=== PATIENT | male | born 1960 | race Caucasian/White ===

== ENCOUNTER 2016-10-28 18:01 | Emergency (ER) | payer OTHER ==
[~2016-10-28 18:01] MED LIST: ALKA SELTZER COLD PO; ASAB PO; ATV.5 PO; AUG875 PO; BACTRONASA NAS; CELEXA20 PO; CULTURELLE OTC PO; FLEX PO; LEVAQUIN750 MG PO; LISINOPRIL PO; NEUR300 PO; NORCO1 TA1 PO; NORCO1 TA2 PO; PAXIL40 MG PO; PENICILLN VK500 MG PO; PRILO PO; PRIN10 PO; PRIN20 PO; PROTONIX PO; SUCR PO; VOLT75 PO; ZESTRIL20 MG PO
[2016-10-28 18:39] LABS: BASOPHILS 0.4 %; BASOPHILS ABSOLUTE 0.04 10/3/uL (0.0-0.16); EOSINOPHILS 1.7 %; EOSINOPHILS ABSOLUTE 0.18 10/3/uL (0.0-0.53); HEMOGLOBIN 11.3 g/dL (13.6-17.8); IMMATURE GRANULOCYTES 0.4 %; IMMATURE GRANULOCYTES ABSOLUTE 0.04 10/3/uL (0.0-0.11); LYMPHOCYTES 14.7 %; LYMPHOCYTES ABSOLUTE 1.59 10/3/uL (0.67-4.30); MEAN CORPUS HGB CONC 32.5 g/dL (32.0-36.0); MEAN PLATELET VOLUME 10.1 fL (9.2-13.0); MONOCYTES 9.3 %; NEUTROPHILS 73.5 %; NEUTROPHILS ABSOLUTE 7.93 10/3/uL (2.02-8.40); RBC DISTRIBUTION WIDTH 13.7 % (12.0-16.0); WHITE BLOOD CELLS 10.8 10/3/uL (4.5-10.5)
[2016-10-28 18:40] LABS: HEMATOCRIT 34.8 % (40.0-51.0); MANUAL DIFF NO %; MEAN CORPUSCULAR HEMOGLOB 25.7 pg (26.0-34.0); MEAN CORPUSCULAR VOLUME 79.1 fL (80-100); PLATELET COUNT 333 10/3/uL (150-400)
[2016-10-28 18:59] LABS: CALCIUM, SERUM 8.5 MG/DL (8.5-10.4); CHEST PAIN PROFILE TAT 0 Hrs 26 Mins; CHLORIDE, SERUM 104 MMOL/L (96-112); CO2 (CARBON DIOXIDE) 25 MMOL/L (24-34); CREATININE 1.47 MG/DL (0.70-1.30); GFR AFRICAN AMERICAN 62 ML/MIN (>=60); GFR NON AFRICAN AMERICAN 53 ML/MIN (>=60); SODIUM, SERUM 137 MMOL/L (135-148); TROPONIN I <0.02 NG/ML (<0.05)
[2016-10-28 19:01] LABS: ACETAMINOPHEN LEVEL (TYLENOL) < 2.0 MCG/ML (10.0-20.0); ALCOHOL < 10 MG/DL (0); BUN (BLOOD UREA NITROGEN) 23 MG/DL (6-23); GLUCOSE, SERUM 118 MG/DL (60-99); POTASSIUM, SERUM 4.6 MMOL/L (3.5-5.3); SALICYLATE < 1.7 MG/DL (-)
[2016-10-28 20:43] LABS: ASCORBIC ACID (UR NOT ORDER) NEG (NEG); BILIRUBIN, URINE NEGATIVE (NEG); ER URINALYSIS TAT 0 Hrs 09 Mins; KETONE, URINE NEGATIVE (NEG); LEUKOCYTE ESTERASE(NOT OR NEG (NEG); NITRITE (URINE) NEG (NEG); WBC (NOT ORDERED) (RFLEX) < 1 (0-5)
[2016-10-28 21:38] LABS: INTERNATIONAL NORMAL RATI 1.1 UNITS (-); PROTIME (NOT ORD) 13.6 SEC (12.0-14.5)
[2016-10-28 21:39] LABS: PARTIAL THROMBO TIME 25.7 SEC (22.5-37.2)
[2016-10-28 21:48] LABS: AMPHETAMINES (NOT ORD) NEG (NEG); BARBITURATES (NOT ORDERED NEG (NEG); BENZODIAZEPINES (NOT ORD) NEG (NEG); CANNABINOIDS (THC) NEG (NEG); COCAINE (NOT ORDERED) NEG (NEG); OPIATES NEG (NEG); PHENCYCLIDINE(PCP) NEG (NEG); TRICYCLICS POS (NEG)
== END 2016-10-29 00:15 | disposition home or self-care (01) ==
LOC: ER 18:01
PROVIDERS: Emergency Medicine
DX: R55 Syncope and collapse (principal); N18.9 Chronic kidney disease, unspecified; F10.10 Alcohol abuse, uncomplicated; I12.9 Hypertensive chronic kidney disease with stage 1 through stage 4 chronic kidney disease, or unspecified chronic kidney disease; K21.9 Gastro-esophageal reflux disease without esophagitis; Z88.2 Allergy status to sulfonamides; Z79.899 Other long term (current) drug therapy; W18.2XXA Fall in (into) shower or empty bathtub, initial encounter
CPT/HCPCS: 70450; 80048; 80305; 80307; 81001; 83735; 84484; 85025; 85610; 85730; 93005; 96374; 96375; 99285; J1200; J2800

== ENCOUNTER 2016-11-05 11:12 | Day surgery (SDC) | payer OTHER ==
[2016-10-30 13:25] LABS: HEMATOCRIT 37.2 % (40.0-51.0); HEMOGLOBIN 11.3 g/dL (13.6-17.8)
[2016-10-30 13:33] LABS: CALCIUM, SERUM 8.9 MG/DL (8.5-10.4); CHLORIDE, SERUM 107 MMOL/L (96-112); CO2 (CARBON DIOXIDE) 28 MMOL/L (24-34); CREATININE 1.32 MG/DL (0.70-1.30); GFR AFRICAN AMERICAN 70 ML/MIN (>=60); GFR NON AFRICAN AMERICAN 61 ML/MIN (>=60); GLUCOSE, SERUM 130 MG/DL (60-99); SODIUM, SERUM 142 MMOL/L (135-148)
[2016-10-30 13:34] LABS: BUN (BLOOD UREA NITROGEN) 13 MG/DL (6-23)
--- NOTE | ~2016-11-05 | OP ---
Record Of Operation [facility] [address] [place]. [address] NAME: LINH SINGLETON : 64 STATUS : REG [facility] PAT#: [id number] AGE: 56 ADM/REG DATE : 11/05/16 MR#: [id number] REPORT SERV DATE: 11/05/16 DICTATED BY: CHAD HANSEN DATE: 11/05/16 REPORT STATUS : Draft TRANSCRIBED BY: MODL DATE: 11/05/16 DATE OF PROCEDURE: 11/05/2016 PREOPERATIVE DIAGNOSIS: Right shoulder large rotator cuff tear (infra and supraspinatus tendon) from injury 1 year ago with retraction and muscle atrophy. POSTOPERATIVE DIAGNOSIS: Right shoulder large rotator cuff tear (infra and supraspinatus tendon) from injury 1 year ago with retraction and muscle atrophy. PROCEDURE: Repair of above rotator cuff via margin convergence on the medial side and SwiveLock suture anchor and suture tape for the lateralmost portion of the tear. ANESTHESIA: General with interscalene block and pain pump catheter. PHYSICIAN: Chad Hansen M.D. NEEDLE LOOM OPERATOR HELPER: Jarred. ANESTHESIA: General with regional block. ESTIMATED BLOOD LOSS: 20 mL. IV FLUIDS: Six hundred crystalloid. COMPLICATIONS: None. DISPOSITION: The patient tolerated the procedure well and was brought to the recovery room in stable condition. PROCEDURE NOTE: After interscalene block and pain pump catheter was administered by the Anesthesia Department in the preop holding area, the patient was brought to the operating room and placed in a supine position. After general anesthesia was administered, the patient was put in the right lateral decubitus position taking care to pad and protect vulnerable areas. The right arm was put in the arthroscopy setup system with 5 pounds of traction elevating the arm approximately 30 degrees later on towards the end of the repair of the rotator cuff. This was increased to 10 pounds. Afterwards, the right shoulder and proximal humerus were prepped and draped in the usual sterile manner. A surgical timeout was performed and all were in agreement and afterwards, our attention was then directed to the posterior portal access into the glenohumeral joint. The posterior portal was made in the standard fashion to gain access into the glenohumeral joint. This revealed diffuse fraying of the labrum and some arthritic changes of the glenoid and humeral head. An anterior portal site was made via the inside-out technique and a shaver was then used to shave the free fibers in this area. The repair of the labrum was not necessary and no other treatment was deemed necessary for these 2 structures at this time. The arthroscope was then placed to the subacromial space and an additional lateral Record Of Operation [facility] [id number] [place]. [address] NAME: LINH SINGLETON : 64 STATUS : REG [facility]#: [id number] AGE: 56 ADM/REG DATE : 11/05/16 MR#: [id number] REPORT SERV DATE: 11/05/16 DICTATED BY: CHAD HANSEN DATE: 11/05/16 REPORT STATUS : Draft TRANSCRIBED BY: HODA DATE: 11/05/16 portal site was made at the "50 yard noni." The shaver was used to debride the edges of the very large rotator cuff tear which included the entire supraspinatus and a good portion of the infraspinatus tendon. Afterwards, a total of 5 separate fiber wires were placed in the edges of the rotator cuff and these were then tied thus bringing the edges together medially. The last 2 lateral sutures comprised of a FiberTape and a suture tape and these were retied and then put into the SwiveLock suture anchor. The SwiveLock suture anchor was placed into the edge of the greater tuberosity near its edge as it meets the lateral border of the humerus. Prior to this placement, the greater tuberosity was debrided sharply of Sharpey fibers back to some punctate bleeding of the bone to promote bone to tendon healing on the greater tuberosity. Placement of the suture anchor was done by 1st making a lion tamer hole at the desired position, gathering all the sutures and putting it through the eyelid of the SwiveLock suture anchor. The SwiveLock suture anchor was then placed into the hole. The sutures were tightly pulled and the SwiveLock suture anchor was screwed into the bone, thus bringing the rotator cuff back to its near anatomic position. Excellent reduction and repair was able to be achieved through this method. All sutures were cut just lateral to the knots that were placed and the shoulder was put through slight internal and external rotation and no further abnormalities were appreciated. A subacromial decompression was deemed not necessary and at this point, arthroscopic instruments were withdrawn. Portal sites were closed with Monocryl suture. Steri-Strips and sterile dressing was applied. The arm was eventually placed in a sling. The patient was ready to be taken out of general anesthesia, after tolerating the procedure quite well. RNOAK/HODA Chad Hansen M.D. / [id number] CC: Feli Ray
== END 2016-11-05 19:37 | disposition home or self-care (01) ==
LOC: SDC 11:12
PROVIDERS: Orthopaedic Surgery Hand Surgery
PROC: 0LQ14ZZ Repair Right Shoulder Tendon, Percutaneous Endoscopic Approach (ICD-10-PCS; principal; 2016-11-05 13:00)
DX: M75.121 Complete rotator cuff tear or rupture of right shoulder, not specified as traumatic (principal); I10 Essential (primary) hypertension; F10.10 Alcohol abuse, uncomplicated; F41.9 Anxiety disorder, unspecified; F32.9 Major depressive disorder, single episode, unspecified; Z88.2 Allergy status to sulfonamides; Z79.899 Other long term (current) drug therapy; Z98.890 Other specified postprocedural states
CPT/HCPCS: 36415; 80048; 85014; 85018; C1713; J0690; J1170; J2250; J2405; J2710; J2795; J3010